=== PATIENT | male | born 1990 | race Caucasian/White ===

== ENCOUNTER 2023-01-22 07:59 | Observation (INO) ==
[2023-01-22] MEDS ORDERED: Ondansetron 4 mg VIAL 2 MG/ML 2 ml VIAL IV PRN (09:15)
[2023-01-22] MEDS ORDERED: HYDROmorphone 0.5 MG/0.5 ML SYRINGE IV SLOW PU PRN (09:39)
[2023-01-22] MEDS: Lactated Ringers 1000 ml BAG 1,000 ML IV SCH ×2 (10:08→16:23)
[2023-01-22] MEDS: HYDROmorphone 1 MG/1 ML SYRINGE IV PRN (22:42)
[2023-01-23] MEDS: Lactated Ringers 1000 ml BAG 1,000 ML IV SCH (01:11)
[2023-01-23] MEDS: HYDROmorphone 1 MG/1 ML SYRINGE IV PRN ×2 (02:22→06:16)
[2023-01-23] MEDS ORDERED: Lidocaine 2% JELLY 20 ML (for OR use) ONE (07:06)
[2023-01-23] MEDS ORDERED: Gelfoam 12-7 ADSORBABL SPONGE ONE (07:06)
[2023-01-23] MEDS ORDERED: Bupivacaine 0.5% W/EPI SDV 10 ML VIAL INJ ONE (07:06)
[2023-01-23] MEDS ORDERED: Lidocaine 2% PF 5 ML VIAL ONE ×2 (07:41)
[2023-01-23] MEDS ORDERED: Propofol 10 MG/ML 20 ML BTL ONE ×2 (07:41)
[2023-01-23] MEDS ORDERED: fentaNYL 100 mcg/2 ml 50 MCG/ML VIAL ONE (07:41)
[2023-01-23] MEDS ORDERED: Midazolam 2 mg/2 ml VIAL 1 mg/ml 2 ml VIAL (2 mg) ONE ×2 (07:41→08:28)
[2023-01-23] MEDS ORDERED: Rocuronium 50 mg VIAL 10 mg/ml 5 ml VIAL (50 mg) ONE (07:43)
[2023-01-23] MEDS ORDERED: Dexamethasone IV 4 MG/ML VIAL 1 ml VIAL ONE (08:25)
[2023-01-23] MEDS ORDERED: Ondansetron 4 mg VIAL 2 MG/ML 2 ml VIAL ONE (08:25)
[2023-01-23] MEDS ORDERED: Gelfoam Sponge SIZE 100 SPONGE ONE (08:45)
[2023-01-23 10:10] VITALS: BP 124/89
== END 2023-01-23 10:06 | disposition home or self-care (01) ==
LOC: EDHOLD 07:59 → ED 07:59 → MED 14:14
PROVIDERS: ADMIT Surgery; ATTEND Surgery